=== PATIENT | female | born 1945 | race Caucasian/White ===

== ENCOUNTER 2022-04-21 17:21 | Inpatient (IN) ==
[2022-04-21] MEDS ORDERED: Lactated Ringers 1000 ml BAG 1,000 ML IV ONE (17:41)
[2022-04-21 18:02] LABS: ABS Lymphocytes 0.6 10^3/ul (1.0-4.8); ABS Monocytes 0.5 10^3/ul (0-0.8); ABS Neutrophils 12.3 10^3/ul (1.5-7.7); Eosinophil % 0.2 %; Hematocrit 47 % (35-47); Hemoglobin 15.7 g/dL (12.0-16.0); Lymphocyte % 4.6 %; Mean Corpuscular HGB Conc 33 g/dL (31-36); Mean Corpuscular Hemoglobin 31 pg (27-31); Mean Corpuscular Volume 92 fL (80-97); Mean Platelet Volume 9.5 fL (7.4-10.4); Platelet Count 225 10^3/uL (150-450); Red Blood Count 5.13 10^6 /uL (3.70-4.87); Red Cell Distribution Width 13 % (10-15); White Blood Count 13.5 10^3/uL (3.5-10.8)
[2022-04-21 18:42] LABS: Albumin 4.3 g/dL (3.2-5.2); Albumin/Globulin Ratio 1.7 (1-3); Calcium 9.5 mg/dL (8.6-10.3); Globulin 2.6 g/dL (2-4); Potassium 4.6 mmol/L (3.5-5.0); Total Bilirubin 0.6 mg/dL (0.2-1.0); Total Protein 6.9 g/dL (6.4-8.9); eGFR CKD-EPI 81.2 (>60)
[2022-04-21] MEDS ORDERED: cefTRIAXone 1 gm/50 mL D5W 1 GM/50 ML BAG IV ONE (19:21)
[2022-04-21] MEDS ORDERED: Azithromycin 500 mg/250 ml NS 500 MG/250 ML BAG IVPB ONE (19:21)
[2022-04-21] MEDS ORDERED: Iohexol 350 (CONTRAST) 500 ML MDV IV ONE (19:46)
[2022-04-22] MEDS ORDERED: methylPREDNISolone SOD SUCC 125 mg 2 ML VIAL IV ONE (00:18)
[2022-04-22] MEDS ORDERED: Albuterol 2.5mg/3 ml (0.083%) NEB.SOLN INH PRN (00:20)
[2022-04-22 00:37] LABS: Magnesium 1.9 mg/dL (1.9-2.7)
[2022-04-22] MEDS: Albuterol/Ipratropium NEB.SOL (2.5/0.5 MG) 3 ML NEB.SOLN INH SCH ×5 (01:09→19:18)
[2022-04-22] MEDS: Enoxaparin 40 MG/0.4 ML SYR SUBCUT SCH ×2 (01:34→22:46)
[2022-04-22] MEDS: Mometasone/Formoter 200/5 MDI INH SCH ×2 (07:19→19:20)
[2022-04-22] MEDS ORDERED: methylPREDNISolone SOD SUCC 40 mg/ml 1 ml VIAL IV SCH (08:00)
[2022-04-22] MEDS: cefTRIAXone 1 gm/50 mL NS BAG 1 GM/50 ML BAG IV SCH (20:05)
[2022-04-22] MEDS: Azithromycin 500 mg/250 ml NS 500 MG/250 ML BAG IVPB SCH (21:18)
[2022-04-22] MEDS ORDERED: Senna TAB 8.6 mg TAB PO PRN (21:31)
[2022-04-23] MEDS: Mometasone/Formoter 200/5 MDI INH SCH ×2 (07:05→19:10)
[2022-04-23] MEDS: Albuterol/Ipratropium NEB.SOL (2.5/0.5 MG) 3 ML NEB.SOLN INH SCH (07:05)
[2022-04-23] MEDS ORDERED: Albuterol/Ipratropium NEB.SOL (2.5/0.5 MG) 3 ML NEB.SOLN INH PRN (07:14)
[2022-04-23 07:18] LABS: ABS Lymphocytes 2.1 10^3/ul (1.0-4.8); ABS Monocytes 1.2 10^3/ul (0-0.8); ABS Neutrophils 11.1 10^3/ul (1.5-7.7); Eosinophil % 0.1 %; Hematocrit 43 % (35-47); Hemoglobin 13.7 g/dL (12.0-16.0); Lymphocyte % 14.8 %; Mean Corpuscular HGB Conc 32 g/dL (31-36); Mean Corpuscular Hemoglobin 30 pg (27-31); Mean Corpuscular Volume 95 fL (80-97); Mean Platelet Volume 10.3 fL (7.4-10.4); Platelet Count 192 10^3/uL (150-450); Red Blood Count 4.54 10^6 /uL (3.70-4.87); Red Cell Distribution Width 13 % (10-15); White Blood Count 14.5 10^3/uL (3.5-10.8)
[2022-04-23 07:37] LABS: Calcium 8.7 mg/dL (8.6-10.3); Magnesium 1.9 mg/dL (1.9-2.7); Potassium 4.7 mmol/L (3.5-5.0); eGFR CKD-EPI 90.2 (>60)
[2022-04-23] MEDS: Albuterol HFA INHALER 8 gm MDI INH SCH ×3 (10:49→19:09)
[2022-04-23] MEDS ORDERED: Lidocaine PATCH 5% PATCH TRANSDERM ONE (13:24)
[2022-04-23] MEDS: Enoxaparin 40 MG/0.4 ML SYR SUBCUT SCH (20:31)
[2022-04-23] MEDS: cefTRIAXone 1 gm/50 mL NS BAG 1 GM/50 ML BAG IV SCH (20:32)
[2022-04-23] MEDS: Magnesium Hydroxide LIQ 30 ML UDC PO SCH (20:33)
[2022-04-23] MEDS: Azithromycin 500 mg/250 ml NS 500 MG/250 ML BAG IVPB SCH (21:59)
[2022-04-24 06:07] LABS: ABS Lymphocytes 2.5 10^3/ul (1.0-4.8); ABS Monocytes 1.1 10^3/ul (0-0.8); ABS Neutrophils 6.9 10^3/ul (1.5-7.7); Eosinophil % 0.3 %; Hematocrit 42 % (35-47); Hemoglobin 13.7 g/dL (12.0-16.0); Lymphocyte % 23.5 %; Mean Corpuscular HGB Conc 33 g/dL (31-36); Mean Corpuscular Hemoglobin 31 pg (27-31); Mean Corpuscular Volume 95 fL (80-97); Nucleated Red Blood Cells % 0.1; Platelet Count 193 10^3/uL (150-450); Red Blood Count 4.44 10^6 /uL (3.70-4.87); Red Cell Distribution Width 14 % (10-15); White Blood Count 10.5 10^3/uL (3.5-10.8)
[2022-04-24 06:30] LABS: Calcium 8.8 mg/dL (8.6-10.3); Magnesium 1.9 mg/dL (1.9-2.7); Potassium 4.3 mmol/L (3.5-5.0)
[2022-04-24] MEDS: Mometasone/Formoter 200/5 MDI INH SCH ×2 (07:05→19:47)
[2022-04-24] MEDS: Albuterol HFA INHALER 8 gm MDI INH SCH ×4 (07:05→19:46)
[2022-04-24] MEDS ORDERED: Magnesium Sulfate IV 1GM/100ML 1 GM/100 ML BAG IV ONE (07:26)
[2022-04-24] MEDS: Magnesium Hydroxide LIQ 30 ML UDC PO SCH ×2 (09:24→21:24)
[2022-04-24] MEDS: methylPREDNISolone SOD SUCC 40 mg/ml 1 ml VIAL IV SCH ×2 (13:13→21:40)
[2022-04-24] MEDS: cefTRIAXone 1 gm/50 mL NS BAG 1 GM/50 ML BAG IV SCH (21:36)
[2022-04-24] MEDS: Enoxaparin 40 MG/0.4 ML SYR SUBCUT SCH (21:40)
[2022-04-24] MEDS ORDERED: Azithromycin 500 mg/250 ml NS 500 MG/250 ML BAG IVPB ONE (22:00)
[2022-04-25] MEDS: Albuterol HFA INHALER 8 gm MDI INH SCH ×2 (01:08→07:20)
[2022-04-25] MEDS: methylPREDNISolone SOD SUCC 40 mg/ml 1 ml VIAL IV SCH (03:52)
[2022-04-25 06:30] LABS: Hematocrit 45 % (35-47); Hemoglobin 14.6 g/dL (12.0-16.0); Mean Corpuscular HGB Conc 33 g/dL (31-36); Mean Corpuscular Hemoglobin 31 pg (27-31); Mean Corpuscular Volume 94 fL (80-97); Red Blood Count 4.79 10^6 /uL (3.70-4.87); Red Cell Distribution Width 13 % (10-15)
[2022-04-25 06:52] LABS: Magnesium 2.2 mg/dL (1.9-2.7); eGFR CKD-EPI 96.7 (>60)
[2022-04-25] MEDS: Mometasone/Formoter 200/5 MDI INH SCH (07:20)
[2022-04-25 07:54] VITALS: BP 138/81
[2022-04-25] MEDS: Magnesium Hydroxide LIQ 30 ML UDC PO SCH (08:50)
[2022-04-25 10:01] LABS: ABS Lymphocytes 0.8 10^3/ul (1.0-4.8); ABS Monocytes 0.3 10^3/ul (0-0.8); ABS Neutrophils 5.9 10^3/ul (1.5-7.7); Giant Platelets Present; Lymphocyte % 11.7 %; Nucleated Red Blood Cells % 0.1; Platelet Count 219 10^3/uL (150-450)
== END 2022-04-25 13:25 | disposition home or self-care (01) | DRG 190 ==
LOC: ED 17:21 → EDHOLD 21:57 → SUATTDRO 21:57 → MED 04-22 01:45
PROVIDERS: ADMIT Internal Medicine; ATTEND Internal Medicine